=== PATIENT | female | born 1950 | race Two or more races ===

== ENCOUNTER 2018-03-25 17:54 | Inpatient (IN) | payer MEDICAID ==
[2018-03-25 19:05] LABS: % BASOPHILS 0.7 % (0.0-2.0); % EOSINOPHILS 3.5 % (0.0-5.0); % LYMPHOCYTES 31.7 % (20.0-50.0); % MONOCYTES 6.5 % (2.0-10.0); % NEUTROPHILS 57.6 % (40.0-80.0); EOSINOPHILE ABSOLUTE 0.2 Th/cmm (0.1-0.4); HEMATOCRIT 33.7 % (41.0-60); HEMOGLOBIN 11.1 gm/dL (12-16); MEAN CELL VOLUME 84.6 fl (81-100); MEAN CORPUSCULAR HEMOGLOBIN 27.8 pg (27.0-31.0); MEAN CORPUSCULAR HGB CONC 32.9 pg (28.0-36.0); MEAN PLATELET VOLUME 7.9 fl; MONOCYTE ABSOLUTE 0.4 Th/cmm (0.3-1.0); NEUTROPHILE ABSOLUTE 3.6 Th/cmm (1.8-8.0); PLATELET COUNT 309 Th/cmm (150-400); RED BLOOD COUNT 3.98 Mil/cmm (3.80-5.20); RED CELL DISTRIBUTION WIDTH 14.6 % (11.5-20.0); WHITE BLOOD COUNT 6.2 Th/cmm (4.8-10.8)
[2018-03-25] MEDS ORDERED: ceFAZolin 1 GM in Sodium Chloride 0.9% 50 ML IV ONE (19:12)
[2018-03-25 19:21] LABS: ALB/GLOB RATIO 1.2 (1.0-1.8); ALBUMIN 3.9 gm/dL (3.7-5.3); ALKALINE PHOSPHATASE 54 U/L (34-104); ANION GAP 10.4 (7.0-16.0); BILIRUBIN,TOTAL 0.2 mg/dL (0.3-1.0); BUN - UREA NITROGEN 17 mg/dL (7-25); CALCIUM SERUM 9.3 mg/dL (8.6-10.3); CARBON DIOXIDE 30.6 mEq/L (21.0-31.0); CHLORIDE 100 mEq/L (98-107); CREATININE - SERUM 0.7 mg/dL (0.6-1.2); GFR AFRICAN-AMERICAN > 60.0 ml/min (>90); GFR NON AFRICAN-AMERICAN > 60.0 ml/min; GLUCOSE 118 mg/dL (70-105); MAGNESIUM 1.8 mg/dL (1.9-2.7); PHOSPHOROUS 3.5 mg/dL (2.5-5.0); SGOT 13 U/L (13-39); SGPT/ALT 12 U/L (7-52); SODIUM SERUM 137 mEq/L (136-145); TOTAL PROTEIN,SERUM 7.2 gm/dL (6.0-8.3)
[2018-03-25 20:09] LABS: URINE SOURCE CATH
[2018-03-25 20:44] LABS: URINE BILIRUBIN NEGATIVE (NEGATIVE); URINE BLOOD NEGATIVE (NEGATIVE); URINE CLARITY CLEAR (CLEAR); URINE COLOR YELLOW; URINE GLUCOSE (UA) NEGATIVE (NEGATIVE); URINE KETONE NEGATIVE (NEGATIVE)
[2018-03-25 20:45] LABS: URINE LEUKOCYTE ESTERASE NEGATIVE (NEGATIVE); URINE MICROSCOPIC INDICATED? YES; URINE NITRATE NEGATIVE (NEGATIVE); URINE PROTEIN NEGATIVE (NEGATIVE); URINE UROBILINOGEN 0.2 E.U./dL (0.2 - 1.0)
[2018-03-25 20:47] LABS: URINE BACTERIA FEW /hpf (NONE SEEN); URINE EPITHELIAL CELLS FEW /lpf (FEW); URINE RBC 0-2 /hpf (0-5)
[2018-03-25 20:59] LABS: AMPHETAMINE URINE NEGATIVE (NEGATIVE); BARBITURATES URINE NEGATIVE (NEGATIVE); BENZODIAZEPINES QUAL URINE NEGATIVE (NEGATIVE); CANNABINOID THC NEGATIVE (NEGATIVE); COCAINE METABOLITE QUAL URINE NEGATIVE (NEGATIVE); METHADONE URINE NEGATIVE (NEGATIVE); METHAMPHETAMINES QUAL URINE NEGATIVE (NEGATIVE); OPIATES (MORPHINE) QUAL. URINE NEGATIVE (NEGATIVE); PHENCYCLIDINE (PCP) URINE NEGATIVE (NEGATIVE); TRICYCLICS (TCA) QUAL. URINE NEGATIVE (NEGATIVE)
[2018-03-25 22:41] LABS: INR 0.94 (0.5-1.4); PROTHROMBIN TIME (TEST) 9.8 SECONDS (9.5-11.5)
--- NOTE | 2018-03-25 22:41 | ED Physician Chart ---
ED Chief Complaint/HPI - Patient Information Date Seen:: 03/25/18 Time Seen:: 17:58 Chief Complaint:: BLE cellulitis History of Present Illness:: BLE cellulitis and edema. H/o DVT in the LLE. No chest pain or shortness of breath. No h/o hemoptysis, melena, vomiting or blood or hematuria. Allergies:: Allergies Allergy/AdvReac Type Severity Reaction Status Date / Time No Known Allergies Allergy Verified 03/25/18 18:22 Vitals:: Vital Signs - 8 hr 03/25/18 17:58 Temp 98.1 F HR 97 RR 16 BP 138/79 O2 Sat % 100 Historian:: Medical Records Review:: Nurse's Note Reviewed, Transfer documents Reviewed ED Review of Systems - Review of Systems General/Constitutional: No fever, No chills, No weight loss, No weakness, No diaphoresis, No edema, No loss of appetite Skin: Other (leg swelling, redness and warmth and LLE wound. ) Eyes: No loss of vision, No pain, No diplopia ENT: No earache, No nasal drainage, No sore throat, No tinnitus Neck: No neck pain, No swelling, No thyromegaly, No stiffness, No mass noted Cardio Vascular: No chest pain, No palpitations, No PND, No orthopnea, No edema Pulmonary: No SOB, No cough, No sputum, No wheezing GI: No nausea, No vomiting, No diarrhea, No pain, No melena, No hematochezia, No constipation, No hematemesis G/U: No dysuria, No frequency, No hematuria Musculoskeletal: No bone or joint pain, No back pain, No muscle pain Endocrine: No polyuria, No polydipsia Psychiatric: Prior psych history Hematopoietic: No bruising, No lymphadenopathy Allergic/Immuno: No urticaria, No angioedema Neurological: No syncope, No focal symptoms, No weakness, No paresthesia, No headache, No seizure, No dizziness, No confusion, No vertigo ED Past Medical History - Past Medical History Past Medical History: HTN, DM, CHF, DVT/PE, Dyslipidemia, Thyroid disorder, Arthritis Psychiatricy History: Schizophrenia Family Medical History - Family Member Mother History Unknown: Yes ED Physical Exam - Physical Examination General/Constitutional: Awake, Well-developed, well-nourished, Alert, No distress, Non-toxic appearing Head: Atraumatic Other Skin comments:: BLE cellulitis RLE more than LLE present in the lower leg area with extension to the thigh. BLE 4 + pitting edema. LLE with a posterior wound that measures the size of a quarter with exposed dermis. Neck: Nontender, Full ROM w/o pain, No JVD, No nuchal rigidity, No bruit, No mass, No stridor Respiratory: Nl effort/Exclusion, Clear to Auscultation, No Wheeze/Rhonchi/Rales Cardio Vascular: RRR, No murmur, gallop, rubs, NL S1 S2 GI: No organomegaly, No hernia, Normal BS's, Nondistended, No mass/bruits, No McBurney tenderness Other GI comments:: Very distended abdomen with decreased bowel sounds (patient states that she has had rabbit pellets come out as stool). Other Extremities comments:: BLE cellulitis RLE more than LLE present in the lower leg area with extension to the thigh. BLE 4 + pitting edema. LLE with a posterior wound that measures the size of a quarter with exposed dermis. Neuro/Psych: Alert/oriented, Normal motor strength, No focal deficits ED Labs/Radiology/EKG Results - Lab Results Results: Laboratory Tests 03/25/18 03/25/18 03/25/18 18:43 18:43 18:43 WBC 6.2 RBC 3.98 Hgb 11.1 L Hct 33.7 L MCV 84.6 MCH 27.8 MCHC Differential 32.9 RDW 14.6 Plt Count 309 MPV 7.9 Neutrophils % 57.6 Lymphocytes % 31.7 Monocytes % 6.5 Eosinophils % 3.5 Basophils % 0.7 Sodium Potassium Chloride Carbon Dioxide Anion Gap BUN Creatinine Est GFR ( Amer) Est GFR (Non-Af Amer) BUN/Creatinine Ratio Glucose Calcium Phosphorus 3.5 Magnesium 1.8 L Total Bilirubin AST ALT Alkaline Phosphatase Total Protein Albumin Globulin Albumin/Globulin Ratio Urine Source Urine Color Urine Clarity Urine pH Ur Specific [place] Urine Protein Urine Glucose (UA) Urine Ketones Urine Blood Urine Nitrate Urine Bilirubin Urine Urobilinogen Ur Leukocyte Esterase Urine RBC Urine WBC Ur Epithelial Cells Urine Bacteria Urine Opiates Screen Urine Methadone Screen Ur Barbiturates Screen Valproic Acid < 10.0 L Ur Tricyclics Screen Ur Phencyclidine Scrn Amphetamines Screen U Methamphetamines Scrn U Benzodiazepines Scrn U Cocaine Metab Screen U Cannabinoids Screen 03/25/18 03/25/18 03/25/18 18:43 19:55 19:55 WBC RBC Hgb Hct MCV MCH MCHC Differential RDW Plt Count MPV Neutrophils % Lymphocytes % Monocytes % Eosinophils % Basophils % Sodium 137 Potassium 4.0 Chloride 100 Carbon Dioxide 30.6 Anion Gap 10.4 BUN 17 Creatinine 0.7 Est GFR ( Amer) > 60.0 Est GFR (Non-Af Amer) > 60.0 BUN/Creatinine Ratio 24.3 Glucose 118 H Calcium 9.3 Phosphorus Magnesium Total Bilirubin 0.2 L AST 13 ALT 12 Alkaline Phosphatase 54 Total Protein 7.2 Albumin 3.9 Globulin 3.3 Albumin/Globulin Ratio 1.2 Urine Source CATH Urine Color YELLOW Urine Clarity CLEAR Urine pH 6.0 Ur Specific [place] 1.010 Urine Protein NEGATIVE Urine Glucose (UA) NEGATIVE Urine Ketones NEGATIVE Urine Blood NEGATIVE Urine Nitrate NEGATIVE Urine Bilirubin NEGATIVE Urine Urobilinogen 0.2 Ur Leukocyte Esterase NEGATIVE Urine RBC 0-2 Urine WBC 2-5 Ur Epithelial Cells FEW Urine Bacteria FEW Urine Opiates Screen NEGATIVE Urine Methadone Screen NEGATIVE Ur Barbiturates Screen NEGATIVE Valproic Acid Ur Tricyclics Screen NEGATIVE Ur Phencyclidine Scrn NEGATIVE Amphetamines Screen NEGATIVE U Methamphetamines Scrn NEGATIVE U Benzodiazepines Scrn NEGATIVE U Cocaine Metab Screen NEGATIVE U Cannabinoids Screen NEGATIVE ED Assessment - Assessment General Assessment: spoke with Dr. Gonzalez about admitting this patient. All information relayed to him: CT scan is pending. Dr. Gonzalez gave [facility] admit orders for this patient. ED Septic Shock - . Is Septic Shock (SBP<90, OR Lactate>4 mmol\L) present?: No - <6hrs of presentation: Vital Signs: Vital Signs - 8 hr 03/25/18 17:58 Temp 98.1 F HR 97 RR 16 BP 138/79 O2 Sat % 100 ED Reassessment (Disposition) - Reassessment Reassessment Condition:: Unchanged - Diagnosis Diagnosis:: BLE DVT BLE cellulitis Diabetes mellitus COPD Schizophrenia Hypothyroidism Hyperlipidemia Hypertension Anemia Osteoarthritis Osteoporosis Polyneuropathy Vitamin D deficiency - Patient Disposition Discharge/Transfer:: Acute Care w/in this hosp Admitted to:: Telemetry Condition at Disposition:: Stable, Unchanged
[2018-03-25] MEDS ORDERED: Heparin Sodium 1,000 Units/mL Vial IVP ONE ×2 (22:53→23:57)
[2018-03-25] MEDS ORDERED: Heparin 25,000 Units In D5W 25,000 UNITS/250 ML BAG IV ONE (23:24)
[2018-03-25] MEDS ORDERED: Maalox 30 mL Cup PO PRN (23:31)
[2018-03-25] MEDS ORDERED: Sodium Chloride 0.45% 1,000 ML IV SCH (23:45)
[2018-03-26] MEDS ORDERED: Ampicillin Sodium/Sulbactam 3 GM in Sodium Chloride 0.9% 100 ML IV SCH (02:00)
[2018-03-26] MEDS: Heparin 25,000 Units In D5W 25,000 UNITS/250 ML BAG IV PRN (02:37)
[2018-03-26] MEDS: Levothyroxine 0.05 Mg Tab PO SCH (06:50)
[2018-03-26] MEDS: INSULIN ASPART, RECOMBINANT 100 UNITS/ML SUBQ SCH ×4 (06:51→20:38)
--- NOTE | 2018-03-26 08:18 | Diagnostic Imaging Report ---
Exam: CT examination of the abdomen pelvis. HISTORY: Abdominal distention. Total DLP equals 587 CTDI equals 12.6 Findings: Multiple contiguous thin section of the pelvis obtained from lower thorax to pubic symphysis without the administration of intravenous or oral contrast material. No prior studies available comparison. The study demonstrates atelectatic changes lung bases with left lower lobe pneumonia and bilateral small pleural effusions pleural thickening The heart is enlarged. There is a small hiatal hernia. The liver parenchyma and spleen are normal. The pancreas is intact. The gallbladder contains calculi consistent with cholelithiasis. The visualized adrenal glands are normal. The kidneys demonstrate no evidence of obstructive uropathy or nephrolithiasis. There is evidence of subcutaneous of soft tissue edema in the low back area predominantly right side. Large amount of fecal content is noted in the sigmoid colon and rectum suggestive of fecal impaction. Bony structures demonstrate no evidence for lytic or blastic lesions. Degenerative changes left hip joint appreciated. Urinary bladder is intact. IMPRESSION: Left lower lung pneumonia superimposed pleural thickening bilaterally small effusions cannot excluded . Small hiatal hernia. Cholelithiasis. Fecal impaction Subcutaneous soft tissue edema lower back posteriorly. Degenerative changes left hip joint.
--- NOTE | 2018-03-26 08:52 | Diagnostic Imaging Report ---
Bilateral lower extremity DVT study HISTORY: Pain COMPARISON: None Technique: Longitudinal and transverse sonographic images of the bilateral lower extremity veins were obtained with doppler analysis. FINDINGS/ impression: Exam is nondiagnostic due to combination of technical factors and body habitus. Repeat examination is recommended.
[2018-03-26] MEDS: Multivitamin Tab PO SCH (09:55)
[2018-03-26] MEDS: Vitamin D3 2,000 IU SGL PO SCH (09:56)
[2018-03-26] MEDS: Benztropine 1 MG TAB PO SCH ×2 (09:56→17:02)
[2018-03-26] MEDS: Aspirin 81mg Chewable Tab PO SCH (09:56)
[2018-03-26] MEDS ORDERED: Probiotic Screen MC PRN (11:00)
[2018-03-26] MEDS: Ampicillin Sodium/Sulbactam 3 GM in Sodium Chloride 0.9% 100 ML IV SCH ×3 (11:21→23:26)
--- NOTE | 2018-03-26 15:05 | Internal Medicine Prog Note ---
Internal Medicine Subjective - Subjective Service Date: 03/26/18 ([id number]) Internal Medicine Objective - Results Result Diagrams: 03/25/18 18:43 03/25/18 18:43 Recent Labs: Laboratory Last Values WBC 6.2 Th/cmm (4.8-10.8) 03/25/18 18:43 RBC 3.98 Mil/cmm (3.80-5.20) 03/25/18 18:43 Hgb 11.1 gm/dL (12-16) L 03/25/18 18:43 Hct 33.7 % (41.0-60) L 03/25/18 18:43 MCV 84.6 fl (81-100) 03/25/18 18:43 MCH 27.8 pg (27.0-31.0) 03/25/18 18:43 MCHC Differential 32.9 pg (28.0-36.0) 03/25/18 18:43 RDW 14.6 % (11.5-20.0) 03/25/18 18:43 Plt Count 309 Th/cmm (150-400) 03/25/18 18:43 MPV 7.9 fl 03/25/18 18:43 Neutrophils % 57.6 % (40.0-80.0) 03/25/18 18:43 Lymphocytes % 31.7 % (20.0-50.0) 03/25/18 18:43 Monocytes % 6.5 % (2.0-10.0) 03/25/18 18:43 Eosinophils % 3.5 % (0.0-5.0) 03/25/18 18:43 Basophils % 0.7 % (0.0-2.0) 03/25/18 18:43 PT 9.8 SECONDS (9.5-11.5) 03/25/18 18:43 INR 0.94 (0.5-1.4) 03/25/18 18:43 PTT (Actin FS) 52.3 SECONDS (26.0-38.0) H 03/26/18 13:15 Sodium 137 mEq/L (136-145) 03/25/18 18:43 Potassium 4.0 mEq/L (3.5-5.1) 03/25/18 18:43 Chloride 100 mEq/L (98-107) 03/25/18 18:43 Carbon Dioxide 30.6 mEq/L (21.0-31.0) 03/25/18 18:43 Anion Gap 10.4 (7.0-16.0) 03/25/18 18:43 BUN 17 mg/dL (7-25) 03/25/18 18:43 Creatinine 0.7 mg/dL (0.6-1.2) 03/25/18 18:43 Est GFR ( Amer) > 60.0 ml/min (>90) 03/25/18 18:43 Est GFR (Non-Af Amer) > 60.0 ml/min 03/25/18 18:43 BUN/Creatinine Ratio 24.3 03/25/18 18:43 Glucose 118 mg/dL (70-105) H 03/25/18 18:43 POC Glucose 120 MG/DL (70 - 105) H 03/26/18 12:17 Calcium 9.3 mg/dL (8.6-10.3) 03/25/18 18:43 Phosphorus 3.5 mg/dL (2.5-5.0) 03/25/18 18:43 Magnesium 1.8 mg/dL (1.9-2.7) L 03/25/18 18:43 Total Bilirubin 0.2 mg/dL (0.3-1.0) L 03/25/18 18:43 AST 13 U/L (13-39) 03/25/18 18:43 ALT 12 U/L (7-52) 03/25/18 18:43 Alkaline Phosphatase 54 U/L (34-104) 03/25/18 18:43 Total Protein 7.2 gm/dL (6.0-8.3) 03/25/18 18:43 Albumin 3.9 gm/dL (3.7-5.3) 03/25/18 18:43 Globulin 3.3 gm/dL 03/25/18 18:43 Albumin/Globulin Ratio 1.2 (1.0-1.8) 03/25/18 18:43 TSH 3.86 uIU/ml (0.34-5.60) 03/25/18 18:43 Urine Source CATH 03/25/18 19:55 Urine Color YELLOW 03/25/18 19:55 Urine Clarity CLEAR (CLEAR) 03/25/18 19:55 Urine pH 6.0 (4.6 - 8.0) 03/25/18 19:55 Ur Specific [place] 1.010 (1.005-1.030) 03/25/18 19:55 Urine Protein NEGATIVE mg/dL (NEGATIVE) 03/25/18 19:55 Urine Glucose (UA) NEGATIVE mg/dL (NEGATIVE) 03/25/18 19:55 Urine Ketones NEGATIVE mg/dL (NEGATIVE) 03/25/18 19:55 Urine Blood NEGATIVE (NEGATIVE) 03/25/18 19:55 Urine Nitrate NEGATIVE (NEGATIVE) 03/25/18 19:55 Urine Bilirubin NEGATIVE (NEGATIVE) 03/25/18 19:55 Urine Urobilinogen 0.2 E.U./dL (0.2 - 1.0) 03/25/18 19:55 Ur Leukocyte Esterase NEGATIVE (NEGATIVE) 03/25/18 19:55 Urine RBC 0-2 /hpf (0-5) 03/25/18 19:55 Urine WBC 2-5 /hpf (0-5) 03/25/18 19:55 Ur Epithelial Cells FEW /lpf (FEW) 03/25/18 19:55 Urine Bacteria FEW /hpf (NONE SEEN) 03/25/18 19:55 Urine Opiates Screen NEGATIVE (NEGATIVE) 03/25/18 19:55 Urine Methadone Screen NEGATIVE (NEGATIVE) 03/25/18 19:55 Ur Barbiturates Screen NEGATIVE (NEGATIVE) 03/25/18 19:55 Valproic Acid < 10.0 ug/mL (50.0-100.0) L 03/25/18 18:43 Ur Tricyclics Screen NEGATIVE (NEGATIVE) 03/25/18 19:55 Ur Phencyclidine Scrn NEGATIVE (NEGATIVE) 03/25/18 19:55 Amphetamines Screen NEGATIVE (NEGATIVE) 03/25/18 19:55 U Methamphetamines Scrn NEGATIVE (NEGATIVE) 03/25/18 19:55 U Benzodiazepines Scrn NEGATIVE (NEGATIVE) 03/25/18 19:55 U Cocaine Metab Screen NEGATIVE (NEGATIVE) 03/25/18 19:55 U Cannabinoids Screen NEGATIVE (NEGATIVE) 03/25/18 19:55 - Physical Exam Vitals and I&O: Vital Signs Temp 97.0 F 03/26/18 11:57 Pulse 86 03/26/18 11:57 Resp 18 08/21/18 11:57 BP 150/67 03/26/18 11:57 Pulse Ox 96 03/26/18 11:57 Intake & Output 03/25/18 03/26/18 03/26/18 18:59 06:59 18:59 Intake Total 640 103.975 Balance 640 103.975 Weight (lbs) 175 lb 184 lb Intake: Intake, IV Amount 400 103.975 Ampicillin Sodium/ 100 Sulbactam 3 gm In Sodium Chloride 0.9% 100 ml @ 100 mls/hr IV Q6HR [facility] Rx #:[id number] Heparin 25,000 Units In 103.975 D5W 25,000 units In 250 ml @ 0 UNITS/HR IV TITR PRN Rx#:[id number] Oral 240 Other: # Voids 2 # Bowel Movements 0 Weight Source Patient stated Bedscale Active Medications: Current Medications Acetaminophen (Tylenol) 650 mg PO Q4H PRN PRN Reason: Pain Or Fever above 101 Stop: 05/24/18 23:30 Al Hydrox/Mg Hydrox/Simethicone (Maalox) 30 ml PO Q6H PRN PRN Reason: Dyspepsia Stop: 05/24/18 23:30 Alendronate Sodium (Fosamax) 70 mg PO QFRI [facility] Stop: 05/28/18 07:29 Ascorbic Acid (Vitamin C) 500 mg PO BID [facility] Stop: 05/25/18 08:59 Last Admin: 03/26/18 09:56 Dose: 500 mg Aspirin (Aspirin Chewable) 81 mg PO DAILY [facility] Stop: 05/25/18 08:59 Last Admin: 03/26/18 09:56 Dose: 81 mg Benztropine Mesylate (Cogentin) 2 mg PO BID [facility] Stop: 05/25/18 08:59 Last Admin: 03/26/18 09:56 Dose: 2 mg Fenofibrate (Tricor) 134 mg PO HS [facility] Stop: 05/25/18 20:59 Gabapentin (Neurontin) 300 mg PO BID [facility] Stop: 05/25/18 08:59 Last Admin: 03/26/18 09:56 Dose: 300 mg Sodium Chloride (Nacl 0.45%) 1,000 mls @ 80 mls/hr IV .[id number] [facility] Stop: 05/24/18 23:44 Last Admin: 03/26/18 04:41 Dose: 80 mls/hr Heparin Sodium/Dextrose (Heparin Drip) 25,000 units in 250 mls @ 0 mls/hr IV TITR PRN; Protocol PRN Reason: PROTOCOL Stop: 05/25/18 01:45 Last Titration: 03/26/18 14:01 Dose: 900 units/hr, 9 mls/hr Ampicillin Sodium/Sulbactam (Sodium 3 gm/ Sodium Chloride) 100 mls @ 100 mls/ hr IV Q6H [facility] Stop: 05/25/18 10:59 Last Admin: 03/26/18 11:21 Dose: 100 mls/hr Ibuprofen (Motrin) 400 mg PO BID PRN PRN Reason: Pain (Moderate) Stop: 05/25/18 08:59 Insulin Aspart (Novolog) 0 units SUBQ ACHS [facility]EL; Protocol Stop: 05/25/18 07:29 Last Admin: 03/26/18 12:27 Dose: Not Given Lactobacillus Rhamnosus (Culturelle 15b) 1 each PO DAILY [facility] Stop: 05/26/18 08:59 Levothyroxine Sodium (Synthroid) 0.05 mg PO QDAC [facility] Stop: 05/25/18 07:29 Last Admin: 03/26/18 06:50 Dose: 0.05 mg Losartan Potassium (Cozaar) 25 mg PO DAILY [facility] Stop: 05/25/18 08:59 Last Admin: 03/26/18 09:57 Dose: 25 mg Metformin HCl (Glucophage) 500 mg PO BID [facility] Stop: 05/25/18 08:59 Last Admin: 03/26/18 09:56 Dose: 500 mg Miscellaneous (Heparin Drip Per Pharmacy) 1 ea PRN [facility]; Protocol Stop: 05/25/18 01:31 Miscellaneous (Probiotic Screen) 1 ea PRN PRN PRN Reason: PROTOCOL Stop: 05/25/18 10:59 Multivitamins/Vitamin C (Theragran) 1 tab PO DAILY [facility] Stop: 05/25/18 08:59 Last Admin: 03/26/18 09:55 Dose: 1 tab Ondansetron HCl (Zofran) 4 mg IV Q8H PRN PRN Reason: Nausea / Vomiting Stop: 05/24/18 23:30 Valproate Sodium (Depakene) 250 mg PO DAILY [facility] Stop: 05/25/18 08:59 Last Admin: 03/26/18 09:57 Dose: 250 mg Valproate Sodium (Depakene) 125 mg PO BID@1200,2100 [facility] Stop: 05/25/18 11:59 Vitamin D (Vitamin D3) 4,000 iu PO DAILY [facility] Stop: 05/25/18 07:44 Last Admin: 03/26/18 09:56 Dose: 4,000 iu
[2018-03-26] MEDS: Sodium Chloride 0.45% 1,000 ML IV SCH (16:01)
--- NOTE | 2018-03-26 16:55 | History & Physical ---
ADMIT DATE: 03/26/[address] Carlo Gonzalez. CHIEF COMPLAINT: Bilateral lower extremity redness. HISTORY OF PRESENT ILLNESS: This is a 67-year-old Syrian female who is a resident of [facility], admitted here to the telemetry unit due to bilateral lower extremity cellulitis and edema. The patient also has a history of DVT in the left lower extremity. The patient does not have any fevers at the skilled nursing. For further management, the patient is now admitted. PAST MEDICAL HISTORY: Hypertension, diabetes, CHF, DVT, dyslipidemia, hypothyroid, arthritis, and schizophrenia. SOCIAL HISTORY: The patient is a skilled nursing resident, requiring 24-hour nursing care. PAST SURGICAL HISTORY: Unknown. ALLERGIES: No drug allergies. FAMILY HISTORY: Noncontributory. REVIEW OF SYSTEMS: GENERAL: Denies any fever and chills. CARDIOVASCULAR: Denies chest pain. RESPIRATORY: Denies shortness of breath. GASTROINTESTINAL: Denies nausea, vomiting, abdominal pain. GENITOURINARY: Denies increased frequency, dysuria. NEUROLOGIC: No headaches, seizures, or syncope. SKIN: The patient's bilateral lower extremity swelling and redness. The patient complains of pain. All other systems reviewed and negative. PHYSICAL EXAMINATION: GENERAL: Elderly female, awake, alert, in no apparent distress. VITAL SIGNS: Temperature 97.0, heart rate 86, blood pressure 150/67, respiration 18, O2 96%. HEENT: Head; normocephalic, atraumatic. NECK: Supple. No mass. LUNGS: Clear bilaterally. HEART: Regular rate and rhythm. ABDOMEN: Soft, nontender. EXTREMITIES: Bilateral lower extremity noted with +4 nonpitting edema noted with redness and tenderness. LABORATORY DATA: WBC 6.2, H and H 11.1 and 33.7, platelet of 309. Sodium 137, potassium 4.0, chloride 100, BUN 17, creatinine 0.7. DIAGNOSTIC DATA: The patient had a CT of the abdomen and pelvis done and impression is left lower lung pneumonia, superimposed pleural thickening, bilateral small effusions cannot be excluded, small hiatal hernia, cholelithiasis, fecal impaction. Lower extremity ultrasound was also obtained and the impression is nondiagnostic to combination of technical factors and body habitus. ASSESSMENT: Bilateral lower extremity cellulitis, worsening deep venous thrombosis, left lower lung pneumonia, fecal impaction, hypertension, diabetes, congestive heart failure, obesity, dyslipidemia, hypothyroid, arthritis. PLAN: The patient is going to be admitted to the telemetry unit. We will start patient on IV antibiotics of ampicillin 3 grams IV q.6h., we will start the patient on heparin drip. We will get followup labs for tomorrow morning. Monitor the patient's PTT, get wound care on the case. Also, ore washer and psychiatrist as well. We will continue to follow this patient. JOB# [id number]
[2018-03-26] MEDS: Fenofibrate, Micronized 134 mg Cap PO SCH (20:43)
[2018-03-27] MEDS: Sodium Chloride 0.45% 1,000 ML IV SCH ×2 (01:09→12:11)
[2018-03-27] MEDS: Heparin 25,000 Units In D5W 25,000 UNITS/250 ML BAG IV PRN (03:37)
[2018-03-27] MEDS: Ampicillin Sodium/Sulbactam 3 GM in Sodium Chloride 0.9% 100 ML IV SCH ×4 (05:29→22:51)
[2018-03-27] MEDS: INSULIN ASPART, RECOMBINANT 100 UNITS/ML SUBQ SCH ×4 (06:32→20:32)
[2018-03-27] MEDS: Levothyroxine 0.05 Mg Tab PO SCH (06:34)
[2018-03-27] MEDS: Multivitamin Tab PO SCH (08:23)
[2018-03-27] MEDS: Lactobacillus Rhamnosus GG 15 Billion CFU CAP.SPRINK PO SCH (08:23)
[2018-03-27] MEDS: Aspirin 81mg Chewable Tab PO SCH (08:23)
[2018-03-27] MEDS: Benztropine 1 MG TAB PO SCH ×2 (08:23→17:31)
[2018-03-27] MEDS: Vitamin D3 2,000 IU SGL PO SCH (08:24)
[2018-03-27 08:55] LABS: % BASOPHILS 0.7 % (0.0-2.0); % EOSINOPHILS 2.3 % (0.0-5.0); % LYMPHOCYTES 28.5 % (20.0-50.0); % MONOCYTES 4.5 % (2.0-10.0); BASOPHILE ABSOLUTE 0.1 Th/cumm (0-0.2); EOSINOPHILE ABSOLUTE 0.2 Th/cmm (0.1-0.4); HEMOGLOBIN 11.2 gm/dL (12-16); LYMPHOCYTE ABSOLUTE 2.3 Th/cmm (1.5-3.0); MEAN CELL VOLUME 84.2 fl (81-100); MEAN CORPUSCULAR HEMOGLOBIN 27.7 pg (27.0-31.0); MEAN PLATELET VOLUME 8.9 fl; MONOCYTE ABSOLUTE 0.4 Th/cmm (0.3-1.0); NEUTROPHILE ABSOLUTE 4.9 Th/cmm (1.8-8.0); PLATELET COUNT 306 Th/cmm (150-400); RED BLOOD COUNT 4.04 Mil/cmm (3.80-5.20); RED CELL DISTRIBUTION WIDTH 14.6 % (11.5-20.0); WHITE BLOOD COUNT 7.9 Th/cmm (4.8-10.8)
[2018-03-27 09:30] LABS: ALBUMIN 3.5 gm/dL (3.7-5.3); ALKALINE PHOSPHATASE 52 U/L (34-104); ANION GAP 12.7 (7.0-16.0); BILIRUBIN,TOTAL 0.3 mg/dL (0.3-1.0); BUN - UREA NITROGEN 8 mg/dL (7-25); CARBON DIOXIDE 26.9 mEq/L (21.0-31.0); CHLORIDE 105 mEq/L (98-107); CREATININE - SERUM 0.6 mg/dL (0.6-1.2); GFR AFRICAN-AMERICAN > 60.0 ml/min (>90); GFR NON AFRICAN-AMERICAN > 60.0 ml/min; GLUCOSE 102 mg/dL (70-105); POTASSIUM SERUM 3.6 mEq/L (3.5-5.1); SGOT 14 U/L (13-39); SGPT/ALT 10 U/L (7-52); SODIUM SERUM 141 mEq/L (136-145)
[2018-03-27] MEDS: Enoxaparin 40 mg/0.4 mL 0.4mL Syr SUBQ SCH ×2 (11:14→22:52)
--- NOTE | 2018-03-27 11:24 | Consultation ---
DATE OF CONSULTATION: 03/27/2018 HEMATOLOGY ONCOLOGY CONSULTATION REFERRING PHYSICIAN: Dr. Jovel. REASON FOR CONSULTATION: Deep vein thrombosis. HISTORY OF PRESENT ILLNESS: The patient is a 67-year-old female who is a resident of a nursing facility. She was admitted because of edema and erythema on both lower extremities. She was reported to have deep vein thrombosis in the left lower extremity. On admission, venous duplex was difficult to interpret and the patient was started on heparin drip. PAST MEDICAL HISTORY: Diabetes, hypertension, obesity, congestive heart failure, deep vein thrombosis, dyslipidemia, hypothyroidism, schizophrenia, and arthritis. SOCIAL HISTORY: Resident of a nursing facility, requiring 24-hour nursing care. PAST SURGICAL HISTORY: Unknown. MEDICATIONS: Reviewed. PHYSICAL EXAMINATION: GENERAL: The patient is awake, alert, not in distress, afebrile. VITAL SIGNS: Blood pressure is stable. HEENT: Atraumatic. NECK: No lymphadenopathy. CHEST: Clear bilaterally. ABDOMEN: Obese, soft. EXTREMITIES: Edema and erythema on both lower extremities with chronic lichenification below the knee bilaterally. There is no active bleeding. LABORATORY DATA: White count 7.9, hemoglobin 11.2, platelets 306. Creatinine 0.7. Liver functions within normal limits. Coagulation panel from admission normal and PTT is 54 on heparin. ASSESSMENT: 1. Erythema and edema of both lower extremities consistent with cellulitis. The patient is currently on IV antibiotics. 2. Deep vein thrombosis of left lower extremity by history. I will continue Lovenox during the hospital stay and repeat the venous duplex for confirmation of diagnosis. If confirm, the patient may be switched to oral anticoagulant on discharge. Thank you, Dr. Gonzalez and Dr. Jovel for the opportunity to participate in the care of this interesting case. JOB# [id number]
--- NOTE | 2018-03-27 12:51 | Diagnostic Imaging Report ---
Bilateral lower extremity Doppler venous ultrasound exam HISTORY: Pain/swelling Sonographic sector images were obtained through the deep venous systems of both legs. Associated Doppler data was obtained. The exam demonstrates patency of the common femoral, superficial femoral, popliteal, and posterior tibial veins bilaterally. Specifically, no thrombus is seen. There are normal compressibility and augmentation responses. IMPRESSION: Negative exam for deep vein thrombophlebitis.
--- NOTE | 2018-03-27 13:54 | Internal Medicine Prog Note ---
Internal Medicine Subjective - Subjective Service Date: 03/27/18 Patient seen and examined:: with staff Patient is:: awake, verbal Per staff patient has:: no adverse event, tolerating meds Internal Medicine Objective - Results Result Diagrams: 03/27/18 07:51 03/27/18 07:51 Recent Labs: Laboratory Last Values WBC 7.9 Th/cmm (4.8-10.8) 03/27/18 07:51 RBC 4.04 Mil/cmm (3.80-5.20) 03/27/18 07:51 Hgb 11.2 gm/dL (12-16) L 03/27/18 07:51 Hct 34.0 % (41.0-60) L 03/27/18 07:51 MCV 84.2 fl (81-100) 03/27/18 07:51 MCH 27.7 pg (27.0-31.0) 03/27/18 07:51 MCHC Differential 33.0 pg (28.0-36.0) 03/27/18 07:51 RDW 14.6 % (11.5-20.0) 03/27/18 07:51 Plt Count 306 Th/cmm (150-400) 03/27/18 07:51 MPV 8.9 fl 03/27/18 07:51 Neutrophils % 64.0 % (40.0-80.0) 03/27/18 07:51 Lymphocytes % 28.5 % (20.0-50.0) 03/27/18 07:51 Monocytes % 4.5 % (2.0-10.0) 03/27/18 07:51 Eosinophils % 2.3 % (0.0-5.0) 03/27/18 07:51 Basophils % 0.7 % (0.0-2.0) 03/27/18 07:51 PT 9.8 SECONDS (9.5-11.5) 03/25/18 18:43 INR 0.94 (0.5-1.4) 03/25/18 18:43 PTT (Actin FS) 53.8 SECONDS (26.0-38.0) H 03/27/18 07:51 Sodium 141 mEq/L (136-145) 03/27/18 07:51 Potassium 3.6 mEq/L (3.5-5.1) 03/27/18 07:51 Chloride 105 mEq/L (98-107) 03/27/18 07:51 Carbon Dioxide 26.9 mEq/L (21.0-31.0) 03/27/18 07:51 Anion Gap 12.7 (7.0-16.0) 03/27/18 07:51 BUN 8 mg/dL (7-25) 03/27/18 07:51 Creatinine 0.6 mg/dL (0.6-1.2) 03/27/18 07:51 Est GFR ( Amer) > 60.0 ml/min (>90) 03/27/18 07:51 Est GFR (Non-Af Amer) > 60.0 ml/min 03/27/18 07:51 BUN/Creatinine Ratio 13.3 03/27/18 07:51 Glucose 102 mg/dL (70-105) 03/27/18 07:51 POC Glucose 126 MG/DL (70 - 105) H 03/27/18 11:34 Calcium 9.0 mg/dL (8.6-10.3) 03/27/18 07:51 Phosphorus 3.5 mg/dL (2.5-5.0) 03/25/18 18:43 Magnesium 2.0 mg/dL (1.9-2.7) 03/27/18 07:51 Total Bilirubin 0.3 mg/dL (0.3-1.0) 03/27/18 07:51 AST 14 U/L (13-39) 03/27/18 07:51 ALT 10 U/L (7-52) 03/27/18 07:51 Alkaline Phosphatase 52 U/L (34-104) 03/27/18 07:51 Total Protein 7.0 gm/dL (6.0-8.3) 03/27/18 07:51 Albumin 3.5 gm/dL (3.7-5.3) L 03/27/18 07:51 Globulin 3.5 gm/dL 03/27/18 07:51 Albumin/Globulin Ratio 1.0 (1.0-1.8) 03/27/18 07:51 TSH 3.86 uIU/ml (0.34-5.60) 03/25/18 18:43 Urine Source CATH 03/25/18 19:55 Urine Color YELLOW 03/25/18 19:55 Urine Clarity CLEAR (CLEAR) 03/25/18 19:55 Urine pH 6.0 (4.6 - 8.0) 03/25/18 19:55 Ur Specific [place] 1.010 (1.005-1.030) 03/25/18 19:55 Urine Protein NEGATIVE mg/dL (NEGATIVE) 03/25/18 19:55 Urine Glucose (UA) NEGATIVE mg/dL (NEGATIVE) 03/25/18 19:55 Urine Ketones NEGATIVE mg/dL (NEGATIVE) 03/25/18 19:55 Urine Blood NEGATIVE (NEGATIVE) 03/25/18 19:55 Urine Nitrate NEGATIVE (NEGATIVE) 03/25/18 19:55 Urine Bilirubin NEGATIVE (NEGATIVE) 03/25/18 19:55 Urine Urobilinogen 0.2 E.U./dL (0.2 - 1.0) 03/25/18 19:55 Ur Leukocyte Esterase NEGATIVE (NEGATIVE) 03/25/18 19:55 Urine RBC 0-2 /hpf (0-5) 03/25/18 19:55 Urine WBC 2-5 /hpf (0-5) 03/25/18 19:55 Ur Epithelial Cells FEW /lpf (FEW) 03/25/18 19:55 Urine Bacteria FEW /hpf (NONE SEEN) 03/25/18 19:55 Urine Opiates Screen NEGATIVE (NEGATIVE) 03/25/18 19:55 Urine Methadone Screen NEGATIVE (NEGATIVE) 03/25/18 19:55 Ur Barbiturates Screen NEGATIVE (NEGATIVE) 03/25/18 19:55 Valproic Acid < 10.0 ug/mL (50.0-100.0) L 03/25/18 18:43 Ur Tricyclics Screen NEGATIVE (NEGATIVE) 03/25/18 19:55 Ur Phencyclidine Scrn NEGATIVE (NEGATIVE) 03/25/18 19:55 Amphetamines Screen NEGATIVE (NEGATIVE) 03/25/18 19:55 U Methamphetamines Scrn NEGATIVE (NEGATIVE) 03/25/18 19:55 U Benzodiazepines Scrn NEGATIVE (NEGATIVE) 03/25/18 19:55 U Cocaine Metab Screen NEGATIVE (NEGATIVE) 03/25/18 19:55 U Cannabinoids Screen NEGATIVE (NEGATIVE) 03/25/18 19:55 - Physical Exam Vitals and I&O: Vital Signs Temp 96.8 F 03/27/18 12:04 Pulse 86 03/27/18 12:04 Resp 18 03/27/18 12:04 BP 119/75 03/27/18 12:04 Pulse Ox 96 03/27/18 12:04 Intake & Output 03/26/18 03/27/18 03/27/18 18:59 06:59 18:59 Intake Total 303.975 779.067 551.667 Balance 303.975 779.067 551.667 Weight (lbs) 179 lb 3.2 oz Intake: Intake, IV Amount 303.975 779.067 551.667 Ampicillin Sodium/ 200 200 Sulbactam 3 gm In Sodium Chloride 0.9% 100 ml @ 100 mls/hr IV Q6H [facility] Rx# :[id number] Heparin 25,000 Units In 103.975 122.4 D5W 25,000 units In 250 ml @ 0 UNITS/HR IV TITR PRN Rx#:[id number] Sodium Chloride 0.45% 1, 456.667 551.667 000 ml @ 50 mls/hr IV . Q20H [facility] Rx#:[id number] Other: Weight Source Bedscale Active Medications: Current Medications Acetaminophen (Tylenol) 650 mg PO Q4H PRN PRN Reason: Pain Or Fever above 101 Stop: 05/24/18 23:30 Al Hydrox/Mg Hydrox/Simethicone (Maalox) 30 ml PO Q6H PRN PRN Reason: Dyspepsia Stop: 05/24/18 23:30 Alendronate Sodium (Fosamax) 70 mg PO QFRI [facility] Stop: 05/28/18 07:29 Ascorbic Acid (Vitamin C) 500 mg PO BID [facility] Stop: 05/25/18 08:59 Last Admin: 03/27/18 08:23 Dose: 500 mg Aspirin (Aspirin Chewable) 81 mg PO DAILY [facility] Stop: 05/25/18 08:59 Last Admin: 03/27/18 08:23 Dose: 81 mg Benztropine Mesylate (Cogentin) 2 mg PO BID [facility] Stop: 05/25/18 08:59 Last Admin: 03/27/18 08:23 Dose: 2 mg Enoxaparin Sodium (Lovenox) 80 mg SUBQ Q12H [facility] Stop: 05/26/18 10:59 Last Admin: 03/27/18 11:14 Dose: 80 mg Fenofibrate (Tricor) 134 mg PO HS [facility] Stop: 05/25/18 20:59 Last Admin: 03/26/18 20:43 Dose: 134 mg Gabapentin (Neurontin) 300 mg PO BID [facility] Stop: 05/25/18 08:59 Last Admin: 03/27/18 08:24 Dose: 300 mg Ampicillin Sodium/Sulbactam (Sodium 3 gm/ Sodium Chloride) 100 mls @ 100 mls/ hr IV Q6H [facility] Stop: 05/25/18 10:59 Last Admin: 03/27/18 11:11 Dose: 100 mls/hr Sodium Chloride (Nacl 0.45%) 1,000 mls @ 50 mls/hr IV .Q20H [facility] Stop: 05/25/18 15:59 Last Admin: 03/27/18 12:11 Dose: 50 mls/hr Ibuprofen (Motrin) 400 mg PO BID PRN PRN Reason: Pain (Moderate) Stop: 05/25/18 08:59 Last Admin: 03/27/18 03:45 Dose: 400 mg Insulin Aspart (Novolog) 0 units SUBQ ACHS [facility]; Protocol Stop: 05/25/18 07:29 Last Admin: 03/27/18 11:36 Dose: Not Given Lactobacillus Rhamnosus (Culturelle 15b) 1 each PO DAILY [facility] Stop: 05/26/18 08:59 Last Admin: 03/27/18 08:23 Dose: 1 each Levothyroxine Sodium (Synthroid) 0.05 mg PO QDAC [facility] Stop: 05/25/18 07:29 Last Admin: 03/27/18 06:34 Dose: 0.05 mg Losartan Potassium (Cozaar) 25 mg PO DAILY [facility] Stop: 05/25/18 08:59 Last Admin: 03/27/18 08:23 Dose: 25 mg Metformin HCl (Glucophage) 500 mg PO BID [facility] Stop: 05/25/18 08:59 Last Admin: 03/27/18 08:23 Dose: 500 mg Miscellaneous (Probiotic Screen) 1 ea MC PRN PRN PRN Reason: PROTOCOL Stop: 05/25/18 10:59 Multivitamins/Vitamin C (Theragran) 1 tab PO DAILY [facility] Stop: 05/25/18 08:59 Last Admin: 03/27/18 08:23 Dose: 1 tab Ondansetron HCl (Zofran) 4 mg IV Q8H PRN PRN Reason: Nausea / Vomiting Stop: 05/24/18 23:30 Valproate Sodium (Depakene) 250 mg PO DAILY [facility] Stop: 05/25/18 08:59 Last Admin: 03/27/18 08:23 Dose: 250 mg Valproate Sodium (Depakene) 125 mg PO BID@1200,2100 [facility] Stop: 05/25/18 11:59 Last Admin: 03/26/18 20:43 Dose: 125 mg Vitamin D (Vitamin D3) 4,000 iu PO DAILY [facility] Stop: 05/25/18 07:44 Last Admin: 03/27/18 08:24 Dose: 4,000 iu General: alert HEENT: NC/AT, PERRLA Neck: Supple Lungs: CTAB Cardiovascular: RRR, Normal S1, Normal S2 Abdomen: soft, non-tender, non-distended, positive bowel sound Extremities: erythema (ble), redness (ble) Neurological: alert Internal Medicine Assmt/Plan - Assessment Assessment: ble cellulitis worsening dvt left lower lung pna htn dm chf obesity dyslipidemia hypothyroid arthritis - Plan Plan: continue with lovenox and ivabx follow up labs in am continue current plan of care
[2018-03-27] MEDS: Fenofibrate, Micronized 134 mg Cap PO SCH (20:30)
[2018-03-28] MEDS: Ampicillin Sodium/Sulbactam 3 GM in Sodium Chloride 0.9% 100 ML IV SCH (04:26)
[2018-03-28 06:49] LABS: % BASOPHILS 1.2 % (0.0-2.0); % EOSINOPHILS 2.8 % (0.0-5.0); % LYMPHOCYTES 35.4 % (20.0-50.0); % MONOCYTES 6.3 % (2.0-10.0); % NEUTROPHILS 54.3 % (40.0-80.0); BASOPHILE ABSOLUTE 0.1 Th/cumm (0-0.2); EOSINOPHILE ABSOLUTE 0.2 Th/cmm (0.1-0.4); HEMATOCRIT 32.8 % (41.0-60); LYMPHOCYTE ABSOLUTE 2.7 Th/cmm (1.5-3.0); MEAN CORPUSCULAR HEMOGLOBIN 27.9 pg (27.0-31.0); MEAN CORPUSCULAR HGB CONC 33.6 pg (28.0-36.0); MEAN PLATELET VOLUME 7.9 fl; MONOCYTE ABSOLUTE 0.5 Th/cmm (0.3-1.0); NEUTROPHILE ABSOLUTE 4.2 Th/cmm (1.8-8.0); PLATELET COUNT 287 Th/cmm (150-400); RED BLOOD COUNT 3.96 Mil/cmm (3.80-5.20); RED CELL DISTRIBUTION WIDTH 14.3 % (11.5-20.0); WHITE BLOOD COUNT 7.7 Th/cmm (4.8-10.8)
[2018-03-28] MEDS: INSULIN ASPART, RECOMBINANT 100 UNITS/ML SUBQ SCH ×2 (06:50→12:57)
[2018-03-28] MEDS: Levothyroxine 0.05 Mg Tab PO SCH (06:50)
[2018-03-28 07:08] LABS: ANION GAP 12.7 (7.0-16.0); BUN - UREA NITROGEN 9 mg/dL (7-25); CALCIUM SERUM 8.7 mg/dL (8.6-10.3); CARBON DIOXIDE 25.9 mEq/L (21.0-31.0); CHLORIDE 106 mEq/L (98-107); CREATININE - SERUM 0.7 mg/dL (0.6-1.2); GFR AFRICAN-AMERICAN > 60.0 ml/min (>90); GFR NON AFRICAN-AMERICAN > 60.0 ml/min; GLUCOSE 100 mg/dL (70-105); POTASSIUM SERUM 3.6 mEq/L (3.5-5.1); SODIUM SERUM 141 mEq/L (136-145)
[2018-03-28] MEDS: Multivitamin Tab PO SCH (08:37)
[2018-03-28] MEDS: Lactobacillus Rhamnosus GG 15 Billion CFU CAP.SPRINK PO SCH (08:39)
[2018-03-28] MEDS: Benztropine 1 MG TAB PO SCH (08:39)
[2018-03-28] MEDS: Aspirin 81mg Chewable Tab PO SCH (08:40)
[2018-03-28] MEDS: Vitamin D3 2,000 IU SGL PO SCH (08:40)
--- NOTE | 2018-03-28 09:43 | General Progress Note ---
Subjective - Review of Systems Service Date: 03/28/18 Subjective: not short of breath Objective - Results Result Diagrams: 03/28/18 06:25 03/28/18 06:25 Recent Labs: Laboratory Last Values WBC 7.7 Th/cmm (4.8-10.8) 03/28/18 06:25 RBC 3.96 Mil/cmm (3.80-5.20) 03/28/18 06:25 Hgb 11.0 gm/dL (12-16) L 03/28/18 06:25 Hct 32.8 % (41.0-60) L 03/28/18 06:25 MCV 83.0 fl (81-100) 03/28/18 06:25 MCH 27.9 pg (27.0-31.0) 03/28/18 06:25 MCHC Differential 33.6 pg (28.0-36.0) 03/28/18 06:25 RDW 14.3 % (11.5-20.0) 03/28/18 06:25 Plt Count 287 Th/cmm (150-400) 03/28/18 06:25 MPV 7.9 fl 03/28/18 06:25 Neutrophils % 54.3 % (40.0-80.0) 03/28/18 06:25 Lymphocytes % 35.4 % (20.0-50.0) 03/28/18 06:25 Monocytes % 6.3 % (2.0-10.0) 03/28/18 06:25 Eosinophils % 2.8 % (0.0-5.0) 03/28/18 06:25 Basophils % 1.2 % (0.0-2.0) 03/28/18 06:25 PT 9.8 SECONDS (9.5-11.5) 03/25/18 18:43 INR 0.94 (0.5-1.4) 03/25/18 18:43 PTT (Actin FS) 53.8 SECONDS (26.0-38.0) H 03/27/18 07:51 Sodium 141 mEq/L (136-145) 03/28/18 06:25 Potassium 3.6 mEq/L (3.5-5.1) 03/28/18 06:25 Chloride 106 mEq/L (98-107) 03/28/18 06:25 Carbon Dioxide 25.9 mEq/L (21.0-31.0) 03/28/18 06:25 Anion Gap 12.7 (7.0-16.0) 03/28/18 06:25 BUN 9 mg/dL (7-25) 03/28/18 06:25 Creatinine 0.7 mg/dL (0.6-1.2) 03/28/18 06:25 Est GFR ( Amer) > 60.0 ml/min (>90) 03/28/18 06:25 Est GFR (Non-Af Amer) > 60.0 ml/min 03/28/18 06:25 BUN/Creatinine Ratio 12.9 03/28/18 06:25 Glucose 100 mg/dL (70-105) 03/28/18 06:25 POC Glucose 90 MG/DL (70 - 105) 03/28/18 06:05 Calcium 8.7 mg/dL (8.6-10.3) 03/28/18 06:25 Phosphorus 3.5 mg/dL (2.5-5.0) 03/25/18 18:43 Magnesium 2.0 mg/dL (1.9-2.7) 03/27/18 07:51 Total Bilirubin 0.3 mg/dL (0.3-1.0) 03/27/18 07:51 AST 14 U/L (13-39) 03/27/18 07:51 ALT 10 U/L (7-52) 03/27/18 07:51 Alkaline Phosphatase 52 U/L (34-104) 03/27/18 07:51 Ammonia 53 umol/L (16-53) 03/28/18 06:25 Total Protein 7.0 gm/dL (6.0-8.3) 03/27/18 07:51 Albumin 3.5 gm/dL (3.7-5.3) L 03/27/18 07:51 Globulin 3.5 gm/dL 03/27/18 07:51 Albumin/Globulin Ratio 1.0 (1.0-1.8) 03/27/18 07:51 TSH 3.86 uIU/ml (0.34-5.60) 03/25/18 18:43 Urine Source CATH 03/25/18 19:55 Urine Color YELLOW 08/20/18 19:55 Urine Clarity CLEAR (CLEAR) 03/25/18 19:55 Urine pH 6.0 (4.6 - 8.0) 03/25/18 19:55 Ur Specific [place] 1.010 (1.005-1.030) 03/25/18 19:55 Urine Protein NEGATIVE mg/dL (NEGATIVE) 03/25/18 19:55 Urine Glucose (UA) NEGATIVE mg/dL (NEGATIVE) 03/25/18 19:55 Urine Ketones NEGATIVE mg/dL (NEGATIVE) 03/25/18 19:55 Urine Blood NEGATIVE (NEGATIVE) 03/25/18 19:55 Urine Nitrate NEGATIVE (NEGATIVE) 03/25/18 19:55 Urine Bilirubin NEGATIVE (NEGATIVE) 03/25/18 19:55 Urine Urobilinogen 0.2 E.U./dL (0.2 - 1.0) 03/25/18 19:55 Ur Leukocyte Esterase NEGATIVE (NEGATIVE) 03/25/18 19:55 Urine RBC 0-2 /hpf (0-5) 03/25/18 19:55 Urine WBC 2-5 /hpf (0-5) 03/25/18 19:55 Ur Epithelial Cells FEW /lpf (FEW) 03/25/18 19:55 Urine Bacteria FEW /hpf (NONE SEEN) 03/25/18 19:55 Urine Opiates Screen NEGATIVE (NEGATIVE) 03/25/18 19:55 Urine Methadone Screen NEGATIVE (NEGATIVE) 03/25/18 19:55 Ur Barbiturates Screen NEGATIVE (NEGATIVE) 03/25/18 19:55 Valproic Acid < 10.0 ug/mL (50.0-100.0) L 03/25/18 18:43 Ur Tricyclics Screen NEGATIVE (NEGATIVE) 03/25/18 19:55 Ur Phencyclidine Scrn NEGATIVE (NEGATIVE) 03/25/18 19:55 Amphetamines Screen NEGATIVE (NEGATIVE) 03/25/18 19:55 U Methamphetamines Scrn NEGATIVE (NEGATIVE) 03/25/18 19:55 U Benzodiazepines Scrn NEGATIVE (NEGATIVE) 03/25/18 19:55 U Cocaine Metab Screen NEGATIVE (NEGATIVE) 03/25/18 19:55 U Cannabinoids Screen NEGATIVE (NEGATIVE) 03/25/18 19:55 - Physical Exam Vitals and I&O: Vital Signs Temp 98.3 F 03/28/18 08:26 Pulse 68 03/28/18 08:38 Resp 18 03/28/18 08:26 BP 128/68 03/28/18 08:38 Pulse Ox 96 03/28/18 08:26 Intake & Output 03/27/18 03/28/18 03/28/18 18:59 06:59 18:59 Intake Total 751.667 200 Balance 751.667 200 Weight (lbs) 81.193 kg Intake: Intake, IV Amount 751.667 100 Ampicillin Sodium/ 200 100 Sulbactam 3 gm In Sodium Chloride 0.9% 100 ml @ 100 mls/hr IV Q6H [facility] Rx# :[id number] Sodium Chloride 0.45% 1, 551.667 000 ml @ 50 mls/hr IV . Q20H [facility] Rx#:[id number] Oral 100 Other: # Voids 3 # Bowel Movements 1 Weight Source Bedscale Active Medications: Current Medications Acetaminophen (Tylenol) 650 mg PO Q4H PRN PRN Reason: Pain Or Fever above 101 Stop: 05/24/18 23:30 Last Admin: 03/28/18 05:55 Dose: 650 mg Al Hydrox/Mg Hydrox/Simethicone (Maalox) 30 ml PO Q6H PRN PRN Reason: Dyspepsia Stop: 05/24/18 23:30 Alendronate Sodium (Fosamax) 70 mg PO QFRI [facility] Stop: 05/28/18 07:29 Ascorbic Acid (Vitamin C) 500 mg PO BID [facility] Stop: 05/25/18 08:59 Last Admin: 03/28/18 08:36 Dose: 500 mg Aspirin (Aspirin Chewable) 81 mg PO DAILY [facility] Stop: 05/25/18 08:59 Last Admin: 03/28/18 08:40 Dose: 81 mg Benztropine Mesylate (Cogentin) 2 mg PO BID [facility] Stop: 05/25/18 08:59 Last Admin: 03/28/18 08:39 Dose: 2 mg Enoxaparin Sodium (Lovenox) 80 mg SUBQ Q12H [facility] Stop: 05/26/18 10:59 Last Admin: 03/27/18 22:52 Dose: 80 mg Fenofibrate (Tricor) 134 mg PO HS [facility] Stop: 05/25/18 20:59 Last Admin: 03/27/18 20:30 Dose: 134 mg Gabapentin (Neurontin) 300 mg PO BID [facility] Stop: 05/25/18 08:59 Last Admin: 03/28/18 08:40 Dose: 300 mg Ampicillin Sodium/Sulbactam (Sodium 3 gm/ Sodium Chloride) 100 mls @ 100 mls/ hr IV Q6H [facility] Stop: 05/25/18 10:59 Last Admin: 03/28/18 04:26 Dose: 100 mls/hr Sodium Chloride (Nacl 0.45%) 1,000 mls @ 50 mls/hr IV .Q20H [facility] Stop: 05/25/18 15:59 Last Admin: 03/27/18 12:11 Dose: 50 mls/hr Ibuprofen (Motrin) 400 mg PO BID PRN PRN Reason: Pain (Moderate) Stop: 05/25/18 08:59 Last Admin: 03/27/18 03:45 Dose: 400 mg Insulin Aspart (Novolog) 0 units SUBQ ACHS [facility]; Protocol Stop: 05/25/18 07:29 Last Admin: 03/28/18 06:50 Dose: Not Given Lactobacillus Rhamnosus (Culturelle 15b) 1 each PO DAILY [facility] Stop: 05/26/18 08:59 Last Admin: 03/28/18 08:39 Dose: 1 each Levothyroxine Sodium (Synthroid) 0.05 mg PO QDAC [facility] Stop: 05/25/18 07:29 Last Admin: 03/28/18 06:50 Dose: 0.05 mg Losartan Potassium (Cozaar) 25 mg PO DAILY [facility] Stop: 05/25/18 08:59 Last Admin: 03/28/18 08:38 Dose: 25 mg Metformin HCl (Glucophage) 500 mg PO BID [facility] Stop: 05/25/18 08:59 Last Admin: 03/28/18 08:38 Dose: 500 mg Miscellaneous (Probiotic Screen) 1 ea MC PRN PRN PRN Reason: PROTOCOL Stop: 05/25/18 10:59 Multivitamins/Vitamin C (Theragran) 1 tab PO DAILY [facility] Stop: 05/25/18 08:59 Last Admin: 03/28/18 08:37 Dose: 1 tab Ondansetron HCl (Zofran) 4 mg IV Q8H PRN PRN Reason: Nausea / Vomiting Stop: 05/24/18 23:30 Valproate Sodium (Depakene) 250 mg PO DAILY [facility] Stop: 05/25/18 08:59 Last Admin: 03/28/18 08:36 Dose: 250 mg Valproate Sodium (Depakene) 125 mg PO BID@1200,2100 [facility] Stop: 05/25/18 11:59 Last Admin: 03/27/18 20:30 Dose: 125 mg Vitamin D (Vitamin D3) 4,000 iu PO DAILY [facility] Stop: 05/25/18 07:44 Last Admin: 03/28/18 08:40 Dose: 4,000 iu General: Alert HEENT: Atraumatic Neck: Supple Cardiovascular: Regular rate Abdomen: Soft Extremities: Other (edema and erythema bilaterally) Assessment/Plan - Assessment Assessment: * Erythema and cellulitis of both lower extremities * Schizophrenia * Anemia No evidence of DVT on duplex, change lovenox dose to prophylactic dose Follow anemia noguera Nutritional Asmnt/Malnutr-PDOC - Dietary Evaluation Malnutrition Findings (Please click <Entered> for more info): Nutritional Asmnt/Malnutrition Start: 03/27/18 17: 16 Text: Status: Complete Freq: Protocol: Document 03/27/18 17:16 [email or web address] (Rec: 03/27/18 17:20 [email or web address] [id number]) Nutritional Asmnt/Malnutrition Patient General Information Nutritional Screening Moderate Risk Consult Diagnosis lower extremity cellulitis, worsening DVT Pertinent Medical Hx/Surgical Hx HTN, DM, CHF, DVT, dyslipidemia, hypothyroidism, arthritis, schizophrenia Subjective Information Consult received for BLE cellulitis. Per EMR, PO intake 25-75% Current Diet Order/ Nutrition Support regular Pertinent Medications ampicillin, vit C, novolog, culturelle, synthroid, glucophage, theragran, nacl 0. 45%, vit D3 Pertinent Labs 03/27 glucose 102, POC 122-126 Nutritional Hx/Data Height 1.57 m Height (Calculated Centimeters) 157.5 Current Weight (lbs) 81.193 kg Weight (Calculated Kilograms) 81.2 Weight (Calculated Grams) 40450.0 [place] Body Weight 110 Body Mass Index (BMI) 32.7 Weight Status Obese GI Symptoms GI Symptoms None Last BM none Difficult in: None Skin Integrity/Comment: redness to right leg Current %PO Fair (50-74%) Estimated Nutritional Goals BEE in Kcals: Adj wt of IBW Calories/Kcals/Kg 25-30 Kcals Calculated [id number] Protein: Adj wt of IBW Protein g/k-1.2 Protein Calculated 58-70 Fluid: ml 1450-1740ml (1ml/kcal) Nutritional Problem No current Nutrition Prob Problem n/A Intervention/Recommendation Comments 1. Continue with regular diet as ordered. 2. Monitor PO intake, wt, labs and skin integrity 3. F/U as moderate risk in 3-5 days, 03/30-04/01 Expected Outcomes/Goals Expected Outcomes/Goals 1. PO intake to meet at least 75% of nutritional needs. 2. Wt stability, skin to remain intact, labs to approach WNL.
--- NOTE | 2018-03-28 12:19 | Internal Medicine Prog Note ---
Internal Medicine Subjective - Subjective Service Date: 03/28/18 ([id number] dc summary ) Patient is:: awake, verbal Per staff patient has:: no adverse event, tolerating meds Internal Medicine Objective - Results Result Diagrams: 03/28/18 06:25 03/28/18 06:25 Recent Labs: Laboratory Last Values WBC 7.7 Th/cmm (4.8-10.8) 03/28/18 06:25 RBC 3.96 Mil/cmm (3.80-5.20) 03/28/18 06:25 Hgb 11.0 gm/dL (12-16) L 03/28/18 06:25 Hct 32.8 % (41.0-60) L 03/28/18 06:25 MCV 83.0 fl (81-100) 03/28/18 06:25 MCH 27.9 pg (27.0-31.0) 03/28/18 06:25 MCHC Differential 33.6 pg (28.0-36.0) 03/28/18 06:25 RDW 14.3 % (11.5-20.0) 03/28/18 06:25 Plt Count 287 Th/cmm (150-400) 03/28/18 06:25 MPV 7.9 fl 03/28/18 06:25 Neutrophils % 54.3 % (40.0-80.0) 03/28/18 06:25 Lymphocytes % 35.4 % (20.0-50.0) 03/28/18 06:25 Monocytes % 6.3 % (2.0-10.0) 03/28/18 06:25 Eosinophils % 2.8 % (0.0-5.0) 03/28/18 06:25 Basophils % 1.2 % (0.0-2.0) 03/28/18 06:25 PT 9.8 SECONDS (9.5-11.5) 03/25/18 18:43 INR 0.94 (0.5-1.4) 03/25/18 18:43 PTT (Actin FS) 53.8 SECONDS (26.0-38.0) H 03/27/18 07:51 Sodium 141 mEq/L (136-145) 03/28/18 06:25 Potassium 3.6 mEq/L (3.5-5.1) 03/28/18 06:25 Chloride 106 mEq/L (98-107) 03/28/18 06:25 Carbon Dioxide 25.9 mEq/L (21.0-31.0) 03/28/18 06:25 Anion Gap 12.7 (7.0-16.0) 03/28/18 06:25 BUN 9 mg/dL (7-25) 03/28/18 06:25 Creatinine 0.7 mg/dL (0.6-1.2) 03/28/18 06:25 Est GFR ( Amer) > 60.0 ml/min (>90) 03/28/18 06:25 Est GFR (Non-Af Amer) > 60.0 ml/min 03/28/18 06:25 BUN/Creatinine Ratio 12.9 03/28/18 06:25 Glucose 100 mg/dL (70-105) 03/28/18 06:25 POC Glucose 90 MG/DL (70 - 105) 03/28/18 06:05 Calcium 8.7 mg/dL (8.6-10.3) 03/28/18 06:25 Phosphorus 3.5 mg/dL (2.5-5.0) 03/25/18 18:43 Magnesium 2.0 mg/dL (1.9-2.7) 03/27/18 07:51 Total Bilirubin 0.3 mg/dL (0.3-1.0) 03/27/18 07:51 AST 14 U/L (13-39) 03/27/18 07:51 ALT 10 U/L (7-52) 03/27/18 07:51 Alkaline Phosphatase 52 U/L (34-104) 03/27/18 07:51 Ammonia 53 umol/L (16-53) 03/28/18 06:25 Total Protein 7.0 gm/dL (6.0-8.3) 03/27/18 07:51 Albumin 3.5 gm/dL (3.7-5.3) L 03/27/18 07:51 Globulin 3.5 gm/dL 03/27/18 07:51 Albumin/Globulin Ratio 1.0 (1.0-1.8) 03/27/18 07:51 TSH 3.86 uIU/ml (0.34-5.60) 03/25/18 18:43 Urine Source CATH 08/20/18 19:55 Urine Color YELLOW 03/25/18 19:55 Urine Clarity CLEAR (CLEAR) 03/25/18 19:55 Urine pH 6.0 (4.6 - 8.0) 03/25/18 19:55 Ur Specific [place] 1.010 (1.005-1.030) 03/25/18 19:55 Urine Protein NEGATIVE mg/dL (NEGATIVE) 03/25/18 19:55 Urine Glucose (UA) NEGATIVE mg/dL (NEGATIVE) 03/25/18 19:55 Urine Ketones NEGATIVE mg/dL (NEGATIVE) 03/25/18 19:55 Urine Blood NEGATIVE (NEGATIVE) 03/25/18 19:55 Urine Nitrate NEGATIVE (NEGATIVE) 03/25/18 19:55 Urine Bilirubin NEGATIVE (NEGATIVE) 03/25/18 19:55 Urine Urobilinogen 0.2 E.U./dL (0.2 - 1.0) 03/25/18 19:55 Ur Leukocyte Esterase NEGATIVE (NEGATIVE) 03/25/18 19:55 Urine RBC 0-2 /hpf (0-5) 03/25/18 19:55 Urine WBC 2-5 /hpf (0-5) 03/25/18 19:55 Ur Epithelial Cells FEW /lpf (FEW) 03/25/18 19:55 Urine Bacteria FEW /hpf (NONE SEEN) 03/25/18 19:55 Urine Opiates Screen NEGATIVE (NEGATIVE) 03/25/18 19:55 Urine Methadone Screen NEGATIVE (NEGATIVE) 03/25/18 19:55 Ur Barbiturates Screen NEGATIVE (NEGATIVE) 03/25/18 19:55 Valproic Acid < 10.0 ug/mL (50.0-100.0) L 03/25/18 18:43 Ur Tricyclics Screen NEGATIVE (NEGATIVE) 03/25/18 19:55 Ur Phencyclidine Scrn NEGATIVE (NEGATIVE) 03/25/18 19:55 Amphetamines Screen NEGATIVE (NEGATIVE) 03/25/18 19:55 U Methamphetamines Scrn NEGATIVE (NEGATIVE) 03/25/18 19:55 U Benzodiazepines Scrn NEGATIVE (NEGATIVE) 03/25/18 19:55 U Cocaine Metab Screen NEGATIVE (NEGATIVE) 03/25/18 19:55 U Cannabinoids Screen NEGATIVE (NEGATIVE) 03/25/18 19:55 - Physical Exam Vitals and I&O: Vital Signs Temp 98.0 F 03/28/18 11:49 Pulse 91 03/28/18 11:49 Resp 18 03/28/18 11:49 BP 128/79 03/28/18 11:49 Pulse Ox 97 03/28/18 11:49 Intake & Output 03/27/18 03/28/18 03/28/18 18:59 06:59 18:59 Intake Total 751.667 200 Balance 751.667 200 Weight (lbs) 179 lb 179 lb Intake: Intake, IV Amount 751.667 100 Ampicillin Sodium/ 200 100 Sulbactam 3 gm In Sodium Chloride 0.9% 100 ml @ 100 mls/hr IV Q6H [facility] Rx# :[id number] Sodium Chloride 0.45% 1, 551.667 000 ml @ 50 mls/hr IV . Q20H [facility] Rx#:[id number] Oral 100 Other: # Voids 3 # Bowel Movements 1 Weight Source Bedscale Patient stated Active Medications: Current Medications Acetaminophen (Tylenol) 650 mg PO Q4H PRN PRN Reason: Pain Or Fever above 101 Stop: 05/24/18 23:30 Last Admin: 03/28/18 05:55 Dose: 650 mg Al Hydrox/Mg Hydrox/Simethicone (Maalox) 30 ml PO Q6H PRN PRN Reason: Dyspepsia Stop: 05/24/18 23:30 Alendronate Sodium (Fosamax) 70 mg PO QFRI [facility] Stop: 05/28/18 07:29 Amoxicillin/Clavulanate Potassium (Augmentin 875-125mg) 1 tab PO BID [facility] Stop: 04/04/18 16:59 Ascorbic Acid (Vitamin C) 500 mg PO BID [facility] Stop: 05/25/18 08:59 Last Admin: 03/28/18 08:36 Dose: 500 mg Aspirin (Aspirin Chewable) 81 mg PO DAILY [facility] Stop: 05/25/18 08:59 Last Admin: 03/28/18 08:40 Dose: 81 mg Benztropine Mesylate (Cogentin) 2 mg PO BID [facility] Stop: 05/25/18 08:59 Last Admin: 03/28/18 08:39 Dose: 2 mg Enoxaparin Sodium (Lovenox) 40 mg SUBQ DAILY [facility] Stop: 05/28/18 08:59 Fenofibrate (Tricor) 134 mg PO HS [facility] Stop: 05/25/18 20:59 Last Admin: 03/27/18 20:30 Dose: 134 mg Gabapentin (Neurontin) 300 mg PO BID [facility] Stop: 05/25/18 08:59 Last Admin: 03/28/18 08:40 Dose: 300 mg Sodium Chloride (Nacl 0.45%) 1,000 mls @ 50 mls/hr IV .Q20H [facility] Stop: 05/25/18 15:59 Last Admin: 03/27/18 12:11 Dose: 50 mls/hr Ibuprofen (Motrin) 400 mg PO BID PRN PRN Reason: Pain (Moderate) Stop: 05/25/18 08:59 Last Admin: 03/27/18 03:45 Dose: 400 mg Insulin Aspart (Novolog) 0 units SUBQ ACHS [facility]; Protocol Stop: 05/25/18 07:29 Last Admin: 03/28/18 06:50 Dose: Not Given Lactobacillus Rhamnosus (Culturelle 15b) 1 each PO DAILY [facility] Stop: 05/26/18 08:59 Last Admin: 03/28/18 08:39 Dose: 1 each Levothyroxine Sodium (Synthroid) 0.05 mg PO QDAC [facility] Stop: 05/25/18 07:29 Last Admin: 03/28/18 06:50 Dose: 0.05 mg Losartan Potassium (Cozaar) 25 mg PO DAILY [facility] Stop: 05/25/18 08:59 Last Admin: 03/28/18 08:38 Dose: 25 mg Metformin HCl (Glucophage) 500 mg PO BID [facility] Stop: 05/25/18 08:59 Last Admin: 03/28/18 08:38 Dose: 500 mg Miscellaneous (Probiotic Screen) 1 ea MC PRN PRN PRN Reason: PROTOCOL Stop: 05/25/18 10:59 Multivitamins/Vitamin C (Theragran) 1 tab PO DAILY [facility] Stop: 05/25/18 08:59 Last Admin: 03/28/18 08:37 Dose: 1 tab Ondansetron HCl (Zofran) 4 mg IV Q8H PRN PRN Reason: Nausea / Vomiting Stop: 05/24/18 23:30 Valproate Sodium (Depakene) 250 mg PO DAILY [facility] Stop: 05/25/18 08:59 Last Admin: 03/28/18 08:36 Dose: 250 mg Valproate Sodium (Depakene) 125 mg PO BID@1200,2100 [facility] Stop: 05/25/18 11:59 Last Admin: 03/27/18 20:30 Dose: 125 mg Vitamin D (Vitamin D3) 4,000 iu PO DAILY [facility] Stop: 05/25/18 07:44 Last Admin: 03/28/18 08:40 Dose: 4,000 iu General: alert HEENT: NC/AT, PERRLA Neck: Supple Lungs: CTAB Cardiovascular: RRR, Normal S1, Normal S2 Abdomen: soft, non-tender, non-distended, positive bowel sound Extremities: erythema (ble), redness (ble) Neurological: alert Internal Medicine Assmt/Plan - Assessment Assessment: ble cellulitis worsening dvt left lower lung pna htn dm chf obesity dyslipidemia hypothyroid arthritis - Plan Plan: continue with lovenox and ivabx follow up labs in am continue current plan of care Nutritional Asmnt/Malnutr-PDOC - Dietary Evaluation Malnutrition Findings (Please click <Entered> for more info): Nutritional Asmnt/Malnutrition Start: 03/27/18 17: 16 Text: Status: Complete Freq: Protocol: Document 03/27/18 17:16 LCHENG (Rec: 03/27/18 17:20 [email or web address] [id number]) Nutritional Asmnt/Malnutrition Patient General Information Nutritional Screening Moderate Risk Consult Diagnosis lower extremity cellulitis, worsening DVT Pertinent Medical Hx/Surgical Hx HTN, DM, CHF, DVT, dyslipidemia, hypothyroidism, arthritis, schizophrenia Subjective Information Consult received for BLE cellulitis. Per EMR, PO intake 25-75% Current Diet Order/ Nutrition Support regular Pertinent Medications ampicillin, vit C, novolog, culturelle, synthroid, glucophage, theragran, nacl 0. 45%, vit D3 Pertinent Labs 03/27 glucose 102, POC 122-126 Nutritional Hx/Data Height 5 ft 2 in Height (Calculated Centimeters) 157.5 Current Weight (lbs) 179 lb Weight (Calculated Kilograms) 81.2 Weight (Calculated Grams) 99647.0 [place] Body Weight 110 Body Mass Index (BMI) 32.7 Weight Status Obese GI Symptoms GI Symptoms None Last BM none Difficult in: None Skin Integrity/Comment: redness to right leg Current %PO Fair (50-74%) Estimated Nutritional Goals BEE in Kcals: Adj wt of IBW Calories/Kcals/Kg 25-30 Kcals Calculated 2065-8313 Protein: Adj wt of IBW Protein g/k-1.2 Protein Calculated 58-70 Fluid: ml 1450-1740ml (1ml/kcal) Nutritional Problem No current Nutrition Prob Problem n/A Intervention/Recommendation Comments 1. Continue with regular diet as ordered. 2. Monitor PO intake, wt, labs and skin integrity 3. F/U as moderate risk in 3-5 days, 03/30-04/01 Expected Outcomes/Goals Expected Outcomes/Goals 1. PO intake to meet at least 75% of nutritional needs. 2. Wt stability, skin to remain intact, labs to approach WNL.
--- NOTE | 2018-03-28 12:41 | Discharge Summary ---
DATE OF DISCHARGE: 03/28/2018 COVERING FOR: Dr. Carlo Gonzalez DISCHARGE DIAGNOSES: Bilateral lower extremity cellulitis which has been treated, worsening deep vein thrombosis, left lung pneumonia which has been treated, hypertension, diabetes, congestive heart failure, obesity, dyslipidemia, hypothyroidism, arthritis. HISTORY OF PRESENT ILLNESS: This is a 67-year-old female who is a resident of [facility], admitted here to the telemetry unit due to bilateral lower extremity cellulitis and edema. The patient also has a history of DVT in the left lower extremity. The patient did not have any fevers at the shelter. For further management, the patient was admitted. PHYSICAL EXAMINATION: GENERAL: Elderly female, awake, alert, in no apparent distress. VITAL SIGNS: Stable. HEENT: Head normocephalic, atraumatic. NECK: Supple. No mass. LUNGS: Clear bilaterally. CARDIOVASCULAR: Regular rate and rhythm. ABDOMEN: Soft, nontender, nondistended. EXTREMITIES: Bilateral lower extremities, mild nonpitting edema. HOSPITAL COURSE: During the hospital stay, the patient was admitted to the telemetry unit. Initially, the patient was on heparin drip and was then converted to Lovenox subcutaneous. The patient was on IV antibiotics of ampicillin 3 grams IV q.6 hours. The patient's WBC was within normal limits. The patient was also seen by diabetes education coordinator as well. The patient had a blood culture done and no growth after 48 hours. The patient is stable for discharge. CONDITION UPON DISCHARGE: Fair. DISPOSITION: [facility]. The patient to have amoxicillin 1 tab p.o. b.i.d. for 7 days. JOB# [id number]
[2018-03-28] MEDS: Sodium Chloride 0.45% 1,000 ML IV SCH (15:18)
[2018-03-28] MEDS ORDERED: Amoxicillin/Clavulanat 875/125 Tab PO SCH (17:00)
[2018-03-29] MEDS ORDERED: Enoxaparin 40 mg/0.4 mL 0.4mL Syr SUBQ SCH (09:00)
== END 2018-03-28 16:55 | DRG 383 ==
LOC: ER 17:54 → TELE 22:30
PROVIDERS: ADMIT Internal Medicine; ATTEND Internal Medicine
DX: L03.116 Cellulitis of left lower limb (principal); J18.9 Pneumonia, unspecified organism; I11.0 Hypertensive heart disease with heart failure; E11.42 Type 2 diabetes mellitus with diabetic polyneuropathy; I50.9 Heart failure, unspecified; F20.9 Schizophrenia, unspecified; D64.9 Anemia, unspecified; E03.9 Hypothyroidism, unspecified; E66.9 Obesity, unspecified; L03.115 Cellulitis of right lower limb; K56.41 Fecal impaction; K44.9 Diaphragmatic hernia without obstruction or gangrene; M81.0 Age-related osteoporosis without current pathological fracture; E55.9 Vitamin D deficiency, unspecified; K80.80 Other cholelithiasis without obstruction; E78.5 Hyperlipidemia, unspecified; M19.90 Unspecified osteoarthritis, unspecified site; Z68.32 Body mass index [BMI] 32.0-32.9, adult; Z86.718 Personal history of other venous thrombosis and embolism
CPT/HCPCS: 36415-UA; 80048-TC; 80053-TC; 80164-TC; 80307; 81001-TC; 82140-TC; 82948-90; 83735-TC; 84100-TC; 84443-TC; 85025-TC; 85610-TC; 85730-TC; 93005; 93970-TC-50; 94760; J0295; J0690; J1644; J1650; J1815; J3370; Z7610